=== PATIENT | male | born 1975 | race Two or more races ===

== ENCOUNTER 2020-01-08 06:40 | Emergency (ER) | payer MEDICAID ==
[~2020-01-08] VITALS: Ht 172.7 cm; Wt 86.2 kg
[2020-01-08 06:48] VITALS: BP 166/68
[2020-01-08] MEDS ORDERED: cefTRIAXone SOD 1,000 MG VL IM ONE (07:15)
[2020-01-08] MEDS ORDERED: KETOROLAC TROMETH 60MG/2ML VIAL IM ONE (07:15)
== END 2020-01-08 07:20 | disposition home or self-care (01) ==
LOC: ER 06:40
DX: K08.89 Other specified disorders of teeth and supporting structures (principal)
CPT/HCPCS: 96372; 99284; J0696; J1885